=== PATIENT | male | born 1955 | race Caucasian/White ===

== ENCOUNTER 2017-02-20 20:37 | Inpatient (IN) ==
[2017-02-20] MEDS ORDERED: ADENOSINE 6 MG/2 ML VIAL ONE (20:52)
[2017-02-20] MEDS ORDERED: ONDANSETRON 4 MG/2 ML VIAL ONE (20:55)
[2017-02-20] MEDS ORDERED: AMIODARONE 150 MG/3 ML VIAL ONE ×2 (20:56→20:57)
[2017-02-20] MEDS ORDERED: AMIODARONE INJ 150 MG in DEXTROSE 5% 100 ML IV STA (21:09)
[2017-02-20] MEDS ORDERED: ASPIRIN 325 MG TABLET PO STA (21:09)
[2017-02-20] MEDS ORDERED: AMIODARONE INJ 150 MG in DEXTROSE 5% 100 ML IV ONE (21:11)
--- NOTE | 2017-02-20 21:16 | Emergency Department Note ---
Arrival - Arrival Chief Complaint: Arrhythmia/Palpitations Stated Complaint: chest pain ED Nursing Triage Note: Patient to triage with c/o CP that started around 1899. Patient noted to be diaphorectic, clammy, and c/o dizzy. EKG done in triage at 2048 before opening patient's chart and patient was noted to be in SVT at a rate of 184. PAtient was urgently taken back to ED 20, physician made aware, and then triage process was completed. Mode of Arrival: Wheelchair Limitations: No Limitations Source: Patient Time Seen by Provider: 02/20/17 21:09 - History of Present Illness HPI Narrative: This 61-year-old white male presents with a history of 2 hours prior to presentation, onset of dizziness, shortness of breath, and diaphoresis without accompanying chest pain. 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 Subsequently, the patient presented to the ER where he was found to have atrial fibrillation at a rate of 184 and was brought to the back. The patient has a long-standing history of atrial fibrillation and had recently had his medications changed, his flecainide being discontinued because of pulmonary toxicity. He is followed by Dr. Crystal locally and at [facility] for his arrhythmia as well as a bicuspid aortic valve and reports he has never experienced an arrhythmia problem such as this. Currently he is nauseated and diaphoretic but has only complaints of chest heaviness. During the initial evaluation the patient was treated with 300 mg of amiodarone IV with subsequent reduction of his atrial fibrillation to the mid 80s and immediate improvement symptomatically. Onset (ago): hour(s) (Patient presents proxy 2 hours post onset of symptoms) Allergies/Adverse Reactions: Allergies Allergy/AdvReac Type Severity Reaction Status Date / Time Sulfa (Sulfonamide Allergy HIVES Verified 02/20/17 21:33 Antibiotics) Review of System - Review of System 12 point system: reviewed and no additional remarkable complaints except as stated - Review of System Constitutional: Present: as per HPI Respiratory: Present: as per HPI Cardiovascular: Present: as per HPI Gastrointestinal: Present: as per HPI Medical,Surgical,& Family Hx - Medical History Cardio: History of: Cardiac Dysrhythmia, Valvular Heart Disease - Social History Smoking Status: Unknown if ever smoked Frequency of Alcohol Use: Unknown Type of Drug Use: Unknown Exam Physical Examination: GENERAL: Well developed, well nourished white male in moderate distress with myers pallor. HEENT: Normocephalic. No trauma. Moist mucous membranes. EOMI. PERRLA. ENT NML NECK: Supple. No adenopathy. CARDIAC: Regular. No murmurs. Heart rate 184 CHEST: Clear to auscultation. No respiratory distress. ABDOMEN: Soft. Nontender. Active bowel sounds. EXTREMITIES: No trauma. Normal ROM. No pedal edema. SKIN: No diaphoresis. No rash. Myers pallor NEURO: Alert. Oriented 3. Motor, sensory, vibratory intact. No focal deficits. Vital Signs: Vital Signs Temperature 96.5 F L 02/20/17 20:54 Pulse Rate 184 H 02/20/17 20:54 Respiratory Rate 26 H 02/20/17 20:54 Blood Pressure 74/57 02/20/17 20:54 O2 Sat by Pulse Oximetry 97 02/20/17 20:54 Course - Reevaluation(s) Reevaluation #1: Discussed with patient the obvious need for hospitalization. - Consultations Consultation #1: Discussed with Dr. Baker who will admit the patient for further evaluation treatment. Results - Labs CBC & BMP: 02/20/17 20:57 02/20/17 20:57 Labs: I have reviewed the laboratory and noted the renal azotemia and elevated CK total but negative enzymes. Notable was an elevated glucose and the patient has no history of diabetes. - Impressions EKG #1: Wide QRS SVT at 184 and a right bundle branch block pattern with diffuse expected ST changes. EKG #2 post amiodarone: Atrial fibrillation at 78 with intraventricular conduction delay and right axis deviation. Diffuse nonspecific ST changes. No acute injury pattern noted. - Diagnostic Findings Procedure: Chest x-ray: image reviewed by me, report reviewed by me (Borderline cardiomegaly with clear lung melendrez) Disposition Clinical Impression: Atrial fibrillation, Renal azotemia, Rhabdomyolysis Case discussed with: patient Disposition: Still a Patient Condition: Guarded Time of Disposition: 22:00
[2017-02-20] MEDS ORDERED: AMIODARONE 450 MG/9 ML VIAL IV ONE (21:18)
[2017-02-20 21:19] LABS: Basophils # 0.1 10*3/uL (0.0-0.2); Eosinophils % 0.4 % (0.00-10.9); Hematocrit 48.4 VOL% (42.0-52.0); Hemoglobin 16.4 GM/DL (14.0-18.0); Immature Granulocytes % 0.4 %; Immature Granulocytes Absolute 0.05 #; Lymphocytes % 26.7 % (21.2-54.2); Mean Corpuscular HGB Conc 33.9 GM/DL (32-36); Mean Corpuscular Hemoglobin 31 PG (27-34); Mean Corpuscular Volume 90.1 FL (87-102); Mean Platelet Volume 11.6 FL (9.6-12.0); Monocytes # 0.8 10*3/uL (0.11-0.8); Monocytes % 7.4 % (1.7-12.7); Neutrophils # 7.3 10*3/uL (1.4-7.4); Neutrophils % 64.1 % (38.7-73.9); Platelet Count 172 T/CUMM (130-400); Red Blood Count 5.37 MC/CUMM (3.8-5.5); Red Cell Distribution Width 12.5 % (9.3-17.3); White Blood Count 11.4 T/CUMM (4-12)
[2017-02-20] MEDS: AMIODARONE INJ 450 MG in DEXTROSE 5% 241 ML IV SCH (21:27)
[2017-02-20 21:32] LABS: CKMB % 1.8 %; Free T4 (Free Thyroxine) 0.97 NG/DL (0.76-1.46); Troponin I Only < 0.015 NG/ML (0.00-0.045)
[2017-02-20] MEDS ORDERED: ASPIRIN 325 MG TABLET ONE (21:32)
[2017-02-20 21:36] LABS: INR 1.2; PT Patient Result 12.7 SECS; Partial Thromboplastin Time 26.6 SECS (0-40)
[2017-02-20 21:37] LABS: Albumin 4.1 G/DL (3.4-5.0); Bilirubin,Total 0.9 MG/DL (0.2-1.0); Calcium 8.9 MG/DL (8.5-10.1); Osmolality,Calculated 292.3 MOS/KG (273-304); Potassium 5.2 MMOL/L (3.5-5.1); Thyroid Stimulating Hormone 3.76 uIU/ml (0.358-3.74); Total Protein 6.9 G/DL (6.4-8.3)
[2017-02-20] MEDS ORDERED: SODIUM CHLORIDE 0.9% 1,000 ML IV STA (21:47)
[2017-02-20] MEDS ORDERED: ONDANSETRON 4 MG/2 ML VIAL IV PRN (22:02)
[2017-02-20] MEDS ORDERED: AMIODARONE INJ 450 MG in DEXTROSE 5% 241 ML IV SCH (22:30)
[2017-02-20] MEDS: SODIUM CHLORIDE 0.9% 1,000 ML IV SCH (23:22)
--- NOTE | 2017-02-21 08:04 | XRay Report ---
Exam: XR chest 1V portable Date: 02/20/2017 9:10 PM Indication: Shortness of breath Comparison: None Technical: AP Findings: Cardiomegaly is present. External cardiac leads and a cardiac pad are present. Tiny low volume left effusion and minimal left basilar atelectasis. No pneumothorax. Oxygen tubing is present. Bony structures are otherwise intact. Impression: 1. Cardiomegaly with minimal left basilar atelectatic change and/or possibly small tiny left effusion PROCEDURE INTERPRETED AT [facility] DEPARTMENT OF RADIOLOGY Final Report Signed by: Dr. Freddie Lehman
[2017-02-21 08:20] LABS: Basophils # 0.1 10*3/uL (0.0-0.2); Basophils % 0.8 % (0.0-0.8); Eosinophils # 0.1 10*3/uL (0.0-0.87); Hematocrit 39.3 VOL% (42.0-52.0); Hemoglobin 13.4 GM/DL (14.0-18.0); Immature Granulocytes % 0.5 %; Immature Granulocytes Absolute 0.04 #; Lymphocytes # 2.1 10*3/uL (1.4-4.0); Lymphocytes % 24.3 % (21.2-54.2); Mean Corpuscular HGB Conc 34.1 GM/DL (32-36); Mean Corpuscular Hemoglobin 31 PG (27-34); Mean Corpuscular Volume 91.2 FL (87-102); Mean Platelet Volume 11.5 FL (9.6-12.0); Monocytes # 0.8 10*3/uL (0.11-0.8); Monocytes % 9.4 % (1.7-12.7); NRBC # 0.02 10*3/uL; Neutrophils # 5.6 10*3/uL (1.4-7.4); Platelet Count 126 T/CUMM (130-400); Red Blood Count 4.31 MC/CUMM (3.8-5.5); Red Cell Distribution Width 12.6 % (9.3-17.3); White Blood Count 8.7 T/CUMM (4-12)
--- NOTE | 2017-02-21 08:58 | Cardiology History & Physical ---
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 EP: Dr. Robles Mr. Holguin is a 61 year old male who is to Ciaran Holguin. 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 He is also seen at [facility]. In fact he is seen in the yearly for screening, where he gets his routine echoes, and has not seen Dr. Crystal since 2013. His atrial fibrillation was treated for a number of years with with flecainide. Recently, he had some asymptomatic atrial fibrillation during an office visit , and their interpretation of their instructions with he could "stop the flecainide" since it was not working and he was asymptomatic. He felt poorly off of the flecainide, and restarted it. At his follow-up visit, this was discontinued because he developed "more heart block", it sounds as if he was bradycardic. Multaq was started. He continued to feel poorly and sluggish, and he has decrease his atenolol from 50 mg to 12.5 mg recently. On the day of admission, he had been working outside in the heat for several hours. He suddenly felt very dizzy, presyncopal. His son checked his pulse, and counted 180-200 bpm. He presented to the emergency room and was found to be in a wide- complex tachycardia at 184 bpm with a right bundle branch block pattern. He was given amiodarone 300 mg IV bolus and converted into an atrial fibrillation with controlled ventricular response at 78 bpm, and eventually converted to sinus bradycardia in the 50s. He did not have nor has he experienced any chest discomfort, shortness of breath , dyspnea on exertion, lower extremity edema, orthopnea, change in exercise tolerance. His creatinine was elevated upon admission, and with hydration has normalized. He has a history of neurogenic bladder but has not been expressing any dysuria. He has not had any acute illness, not received any steroids, does not consume energy drinks, and usually drinks 2-3 cups of coffee a day. In general they have a preference for any cardiac workup to be done at [facility]. Impression and plan: 1. Arrhythmia-he has some complex arrhythmia with an initial presenting wide- complex tachycardia and then A. fib in the setting of recent medication changes. 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 2. History of bicuspid aortic valve-he does not appear to have aortic stenosis on exam. Home Medications Medication Instructions Recorded Confirmed Type Aspirin EC Tab 325 mg PO QPM 02/20/17 02/20/17 History Atenolol [Atenolol] 50 mg PO QPM 02/20/17 02/20/17 History Baclofen Tab [Lioresal] 0 mg PO BID 02/20/17 02/20/17 History Dronedarone [Multaq] 400 mg PO DAILY W/BREAKFAST 02/20/17 02/20/17 History Rosuvastatin [Crestor] 0 mg PO BEDTIME 02/20/17 02/20/17 History Tamsulosin [Flomax] 0.4 mg PO QAM 02/20/17 02/20/17 History Tamsulosin [Flomax] 0.4 mg PO QOTHER DAY 02/20/17 02/20/17 History Allergies Allergy/AdvReac Type Severity Reaction Status Date / Time Sulfa (Sulfonamide Allergy HIVES Verified 02/20/17 21:33 Antibiotics) 12 point system: reviewed and no additional remarkable complaints except as stated Medical,Surgical,& Family Hx - Medical History Cardio: History of: Cardiac Dysrhythmia (A. fib), Valvular Heart Disease ( Bicuspid aortic valve) Neurology: History of: Migraine Genitourinary: History of: Bladder Problem (neurogenic bladder), Prostate Problems (chronic prostatitis) Gastrointestinal: History of: GI Problems (hernia) Musculoskeletal: History of: Musculoskeletal Problems (L leg muscle atrophy) - Surgical History Cardiac Surgeries: Sugical HX of: Cardiac Catheterization Thoracic Surgeries: Patient denies;: Lobectomy Neurologic Surgeries: Patient denies: Neurologic Surgery Reproductive Surgeries: Patient denies;: Genitourinary Surgery - Social History Smoking Status: Never smoker Frequency of Alcohol Use: None Type of Drug Use: None Marital Status: Lives With:: Spouse Functional capacity: independent ambulation Cardiology Physical Exam - Constitutional Vitals: Vital Signs Temp Pulse Resp BP Pulse Ox 98.3 F 52 L 18 107/52 96 02/21/17 07:13 02/21/17 07:13 02/21/17 07:13 02/21/17 07:13 02/21/17 07:13 Intake and Output 02/20/17 02/21/17 02/21/17 23:59 07:59 15:59 Intake Total 0 / 0 120 / 120 Balance 0 / 0 120 / 120 Intake: IV 0 / 0 Cordarone Inj 450 mg In 0 / 0 D5 241 ml @ 0.5 MG/MIN 16 .66 mls/hr IV .Q15H1M [facility] Rx#:[id number] Oral 120 / 120 Other: # Voids 1 # Bowel Movements 0 Weight 84.425 kg Exam: General appearance: normal weight, no acute distress - Head Head exam: Present: normal inspection, normocephalic, atraumatic. Absent: hematoma, laceration - Eye Eye exam: Present: EOMI. Absent: conjunctival injection, nystagmus, periorbital swelling, scleral icterus, laceration to eyelids Pupils: Present: PERRL. Absent: constricted, dilated, fixed, irregular, unequal - ENT ENT exam: Present: normal exam, normal external ear exam - Neck Neck exam: Present: normal inspection. Absent: lymphadenopathy, meningismus, tenderness, thyromegaly - Respiratory Respiratory exam: Present: clear to auscultation bilaterally. Absent: accessory muscle use, chest wall tenderness - Cardiovascular Cardiovascular exam: Present: regular rate and rhythm with a late peaking subtle 2/6 systolic murmur. Absent: carotid bruit, gallop, JVD, rubs - GI/Abdominal GI/Abdominal exam: Present: normal bowel sounds, soft. Absent: distended, firm , guarding, hernia, mass, tenderness, rebound. - Extremities Exam Extremities exam: Present: normal inspection, normal capillary refill. Absent: calf tenderness, edema - Back Exam Back exam: Present: normal inspection. Absent: muscle spasm, vertebral tenderness - Neurological Exam Neurological exam: Present: alert, oriented X3, grossly intact without resting or intention tremor - Psychiatric Psychiatric exam: Present: normal affect, normal mood - Skin Skin exam: Present: normal color, warm, dry, intact. Absent: cyanosis, diaphoretic, rash, urticaria Result/EKG - Labs CBC & BMP: 02/21/17 08:10 02/21/17 08:10 Lab Results: I have reviewed the past 24 hour labs Labs: Laboratory Results - last 24 hr 02/20/17 02/20/17 02/20/17 20:57 20:57 20:57 WBC 11.4 RBC 5.37 Hgb 16.4 Hct 48.4 MCV 90.1 MCH 31 MCHC 33.9 RDW 12.5 Plt Count 172 MPV 11.6 Neut % (Auto) 64.1 Lymph % (Auto) 26.7 [place] % (Auto) 7.4 Eos % (Auto) 0.4 Baso % (Auto) 1.0 H Neut # (Auto) 7.3 Lymph # (Auto) 3.0 [place] # (Auto) 0.8 Eos # (Auto) 0.0 Baso # (Auto) 0.1 Immature Gran % 0.4 Nucleated RBC % 0.0 Immature Gran # 0.05 Nucleated RBCs # 0.00 Immature Plt Fraction 0.0 INR 1.2 PT Patient/Control Mix 12.7 Circ Anticoag PTT 26.6 Sodium Potassium Chloride Carbon Dioxide Anion Gap BUN Creatinine GFR Calculation BUN/Creatinine Ratio Glucose Calculated Osmolality Calcium Total Bilirubin AST ALT Alkaline Phosphatase Total Creatine Kinase 689 H CK-MB (CK-2) 12.1 H CK and CKMB Interp 1.8 Troponin I < 0.015 B-Natriuretic Peptide Total Protein Albumin Globulin Albumin/Globulin Ratio Free T4 0.97 TSH 3rd Generation 02/20/17 02/20/17 02/21/17 20:57 20:57 08:10 WBC 8.7 RBC 4.31 Hgb 13.4 L D Hct 39.3 L MCV 91.2 MCH 31 MCHC 34.1 RDW 12.6 Plt Count 126 L D MPV 11.5 Neut % (Auto) 64.0 Lymph % (Auto) 24.3 [place] % (Auto) 9.4 Eos % (Auto) 1.0 Baso % (Auto) 0.8 Neut # (Auto) 5.6 Lymph # (Auto) 2.1 [place] # (Auto) 0.8 Eos # (Auto) 0.1 Baso # (Auto) 0.1 Immature Gran % 0.5 Nucleated RBC % 0.2 Immature Gran # 0.04 Nucleated RBCs # 0.02 Immature Plt Fraction 0.0 INR PT Patient/Control Mix Circ Anticoag PTT Sodium 141 Potassium 5.2 H Chloride 106 Carbon Dioxide 26 Anion Gap 14.2 BUN 27 H Creatinine 2.20 H GFR Calculation 35 BUN/Creatinine Ratio 12.00 Glucose 223 H Calculated Osmolality 292.3 Calcium 8.9 Total Bilirubin 0.90 AST 119 H ALT 128 H Alkaline Phosphatase 81 Total Creatine Kinase CK-MB (CK-2) CK and CKMB Interp Troponin I B-Natriuretic Peptide 370 H Total Protein 6.9 Albumin 4.1 Globulin 2.8 Albumin/Globulin Ratio 1.4 Free T4 TSH 3rd Generation 3.760 H - Diagnostic Findings Procedure: Chest x-ray: report reviewed by me - EKG EKG results: interpreted by me EKG shows: atrial fibrillation
[2017-02-21] MEDS ORDERED: DRONEDARONE 400 MG TABLET PO SCH (09:00)
[2017-02-21] MEDS ORDERED: ATENOLOL 50 MG TABLET PO SCH (09:00)
[2017-02-21] MEDS: TAMSULOSIN 0.4 MG CAPSULE PO SCH (09:02)
[2017-02-21] MEDS: ASPIRIN 325 MG TABLET PO SCH (09:02)
[2017-02-21] MEDS: BACLOFEN 10 MG TABLET PO SCH ×2 (09:02→21:31)
[2017-02-21] MEDS: PANTOPRAZOLE 40 MG TABLET PO SCH (09:02)
[2017-02-21] MEDS: SODIUM CHLORIDE 0.9% 1,000 ML IV SCH ×3 (09:03→23:43)
[2017-02-21 09:05] LABS: Albumin 3.4 G/DL (3.4-5.0); Bilirubin,Total 0.9 MG/DL (0.2-1.0); CKMB % 2.5 %; Calcium 7.9 MG/DL (8.5-10.1); Osmolality,Calculated 286.1 MOS/KG (273-304); Potassium 4.4 MMOL/L (3.5-5.1); Total Protein 5.7 G/DL (6.4-8.3)
[2017-02-21 09:06] LABS: Troponin I Only 0.557 NG/ML (0.00-0.045)
--- NOTE | 2017-02-21 09:59 | EKG Report ---
Please refer to the EKG image. Final interpretation is pending.
--- NOTE | 2017-02-21 09:59 | EKG Report ---
Please refer to the EKG image. Final interpretation is pending.
--- NOTE | 2017-02-21 12:19 | EKG Report ---
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
[2017-02-21] MEDS ORDERED: ENOXAPARIN 80 MG/0.8 ML SYRINGE SUBCUT ONE (13:11)
[2017-02-21 14:02] LABS: CKMB % 2.6 %; Troponin I Only 0.445 NG/ML (0.00-0.045)
[2017-02-21 14:07] LABS: Risk Ratio 2.56; VLDL CHOLESTEROL 25.8 MG/DL
[2017-02-21] MEDS ORDERED: ROSUVASTATIN 20 MG TABLET PO SCH (21:00)
[2017-02-21] MEDS: AMIODARONE INJ 450 MG in DEXTROSE 5% 241 ML IV SCH (23:43)
[2017-02-22 05:22] LABS: Basophils # 0.1 10*3/uL (0.0-0.2); Basophils % 0.8 % (0.0-0.8); Eosinophils # 0.1 10*3/uL (0.0-0.87); Eosinophils % 1.1 % (0.00-10.9); Hematocrit 40.3 VOL% (42.0-52.0); Hemoglobin 13.5 GM/DL (14.0-18.0); Immature Granulocytes % 0.4 %; Immature Granulocytes Absolute 0.04 #; Lymphocytes # 2.1 10*3/uL (1.4-4.0); Lymphocytes % 21.8 % (21.2-54.2); Mean Corpuscular HGB Conc 33.5 GM/DL (32-36); Mean Corpuscular Hemoglobin 31 PG (27-34); Mean Corpuscular Volume 93.3 FL (87-102); Mean Platelet Volume 11.9 FL (9.6-12.0); Monocytes # 0.8 10*3/uL (0.11-0.8); Neutrophils # 6.6 10*3/uL (1.4-7.4); Neutrophils % 67.9 % (38.7-73.9); Platelet Count 114 T/CUMM (130-400); Red Blood Count 4.32 MC/CUMM (3.8-5.5); Red Cell Distribution Width 12.5 % (9.3-17.3); White Blood Count 9.8 T/CUMM (4-12)
[2017-02-22 05:55] LABS: Calcium 8.1 MG/DL (8.5-10.1); Magnesium 2.1 MG/DL (1.8-2.4); Potassium 4.9 MMOL/L (3.5-5.1)
[2017-02-22] MEDS: SODIUM CHLORIDE 0.9% 1,000 ML IV SCH (06:55)
[2017-02-22] MEDS: TAMSULOSIN 0.4 MG CAPSULE PO SCH (08:18)
[2017-02-22] MEDS: PANTOPRAZOLE 40 MG TABLET PO SCH (08:18)
[2017-02-22] MEDS: BACLOFEN 10 MG TABLET PO SCH (08:18)
[2017-02-22] MEDS: ASPIRIN 325 MG TABLET PO SCH (08:18)
[2017-02-22 08:28] VITALS: BP 138/73
--- NOTE | 2017-02-22 10:11 | Discharge Summary ---
Hospital Course - Hospital Course Hospital Course: TYPE CUTTER: DR. CRYSTAL. EP: DR. BONNER FEBRUARY 21, 2017: Mr. Holguin is a 61 year old male who is to DrCiaran . 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 He is also seen at [facility]. In fact he is seen in the yearly for screening, where he gets his routine echoes, and has not seen Dr. Crystal since 2013. His atrial fibrillation was treated for a number of years with with Flecainide. Recently, he had heart block during a clinic visit with Dr. Bonner and he was told to stop the Flecainide. Patient did stop the Flecainide however he felt poorly off of it therefore he restarted it himself. When he was seen in his last clinic visit, he was taking Flecainide and apparently was still in a heart block. The Flecainide was stopped and he was started on Multaq. This was approximately 3 weeks ago. He continued to feel poorly and sluggish, and he has decrease his atenolol from 50 mg to 12.5 mg recently. On the day of admission, he had been working outside in the heat for several hours. He suddenly felt very dizzy, presyncopal. His son checked his pulse, and counted 180-200 bpm. He presented to the emergency room and was found to be in a wide-complex tachycardia at 184 bpm with a right bundle branch block pattern. He was given Amiodarone 300 mg IV bolus and converted into an atrial fibrillation with controlled ventricular response at 78 bpm, and eventually converted to sinus bradycardia in the 50s. FEBRUARY 22, 2017: During the night, he had a brief episode of a narrow complex tachycardia briefly. He is feeling well, continuing to be hydrated with IV fluids. Troponin initially was 0.5 and repeat noted to be 0.4. It is felt that his troponin elevation was related to his tachycardic state. He is ready for transfer. Dr. Lucas Troy has agreed to accept the patient at [facility]. At this time, he is being transferred in stable condition - Time spent with patient Time with patient DS: Greater than 30 minutes Diagnosis - Discharge Diagnosis (1) Wide-complex tachycardia Status: Acute (2) Atrial fibrillation Status: Chronic (3) Bicuspid aortic valve Status: Chronic Discharge Plan - Discharge Data Disposition: Disch/Xfer-Ipshort Term Hos Condition at Discharge: Stable Discharge Diet: heart healthy Activity: other (Per cardiology instructions at [facility]) Hygiene: no restrictions Weight Bearing at Discharge: full weight bearing Driving: not until seen by doctor Contact your physician if you experience:: fever over 101, Difficulty voiding, Redness or swelling, Nausea/Vomiting, Shortness of breath, Bleeding, pain uncontrolled by pain medications - Discharge Medications Continue Rosuvastatin [Crestor] 0 mg PO BEDTIME Tamsulosin [Flomax] 0.4 mg PO QOTHER DAY Tamsulosin [Flomax] 0.4 mg PO QAM Dronedarone [Multaq] 400 mg PO DAILY W/BREAKFAST Baclofen Tab [Lioresal] 0 mg PO BID Atenolol 50 mg PO QPM Aspirin EC Tab 325 mg PO QPM - Follow Up or Referral - Forms/Instructions Exam - Constitutional Vitals: Period Temp Pulse Resp BP Sys/Bright Pulse Ox Last 24 Hr 97.0 F-98.9 F 54-74 16-20 120-138/60-75 92-98 Exam: General: [Appears well with no apparent distress.] [Pleasant and cooperative. ] [Appears comfortable.] HEENT: [PERRL, normocephalic, atraumatic. Mucous membranes moist. No jaundice noted. Conjunctiva moist and clear, sclerae anicteric] Neck: No JVD/HJR, no thyromegaly or lymphadenopathy noted. No carotid bruit appreciated Cardiac: [Regular rate and rhythm.] [No murmur rub or gallop.] Lungs: [Clear to auscultation without accessory muscle use to assist the respiratory pattern.] Oxygen in use via nasal cannula Abdomen: Soft, bowel sounds normoactive. Nontender and nondistended. No abdominal bruit or thrill noted. No masses noted. Musculoskeletal: No fluid collection. Decreased range of motion is noted. Extremities: No clubbing, cyanosis noted. [ No edema noted.] Upper extremity pulses 2+. Lower extremity pulses 2+. Capillary refill less than 3 seconds. Skin: No unusual lesions or rashes. No skin breakdown appreciated. Neuro: Awake, alert and oriented 3. Moves all extremities well without hemiparesis or paralysis. No essential tremor is appreciated. Discharge Results Procedures and tests throughout hospitalization: Pending Orders 02/20/17 21:48 UA [Urinalysis] Stat 02/23/17 04:00 Basic Metabolic Panel w/Mg IN AM Comp Blood Count Auto Diff IN AM 02/24/17 04:00 Basic Metabolic Panel w/Mg IN AM Comp Blood Count Auto Diff IN AM Labs on day of discharge: Labs from last 24 hours 02/22/17 02/22/17 02/21/17 03:52 03:52 13:27 WBC 9.8 RBC 4.32 Hgb 13.5 L Hct 40.3 L MCV 93.3 MCH 31 MCHC 33.5 RDW 12.5 Plt Count 114 L MPV 11.9 Neut % (Auto) 67.9 Lymph % (Auto) 21.8 [place] % (Auto) 8.0 Eos % (Auto) 1.1 Baso % (Auto) 0.8 Neut # (Auto) 6.6 Lymph # (Auto) 2.1 [place] # (Auto) 0.8 Eos # (Auto) 0.1 Baso # (Auto) 0.1 Immature Gran % 0.4 Nucleated RBC % 0.0 Immature Gran # 0.04 Nucleated RBCs # 0.00 Immature Plt Fraction 0.0 Sodium 143 Potassium 4.9 Chloride 110 H Carbon Dioxide 27 Anion Gap 10.9 BUN 24 H Creatinine 1.10 GFR Calculation 86 BUN/Creatinine Ratio 21.00 H Glucose 84 Calculated Osmolality 287.0 Calcium 8.1 L Magnesium 2.1 Total Creatine Kinase CK-MB (CK-2) CK and CKMB Interp Troponin I Triglycerides 129 Cholesterol 100 LDL Cholesterol 46.0 VLDL Cholesterol 25.8 HDL Cholesterol 39 L Heart Disease Risk Ratio 2.56 02/21/17 02/21/17 13:27 13:27 WBC RBC Hgb Hct MCV MCH MCHC RDW Plt Count MPV Neut % (Auto) Lymph % (Auto) [place] % (Auto) Eos % (Auto) Baso % (Auto) Neut # (Auto) Lymph # (Auto) [place] # (Auto) Eos # (Auto) Baso # (Auto) Immature Gran % Nucleated RBC % Immature Gran # Nucleated RBCs # Immature Plt Fraction Sodium Potassium Chloride Carbon Dioxide Anion Gap BUN Creatinine GFR Calculation BUN/Creatinine Ratio Glucose Calculated Osmolality Calcium Magnesium 2.3 Total Creatine Kinase 497 H CK-MB (CK-2) 13.1 H CK and CKMB Interp 2.6 Troponin I 0.445 H D Triglycerides Cholesterol LDL Cholesterol VLDL Cholesterol HDL Cholesterol Heart Disease Risk Ratio - Imaging and Cardiology Cardiology Procedure: report reviewed by me Procedure: Chest x-ray: report reviewed by me DS: Provider Date of admission: 02/20/17 22:00 Primary care physician: Mian Crystal MD Attending physician on admission: Mendy Shelton, Consults: 02/21/17 13:12 Consult to Case Mgmt/Social Srvs [CONS] Routine Reason for Case Mgmt/Social Srvs: Other Consult Comment: Assist with Transfer in am to Dr. Lucas Troy at [facility] Discharging clinician: Kendra Gamboa NP Expected date of discharge: 02/22/17
== END 2017-02-22 10:32 | disposition hospice, home (50) | DRG 309 ==
LOC: N.ED 20:37 → N.EDINP 22:00 → N.TELES 22:48
PROVIDERS: ADMIT Internal Medicine Cardiovascular Disease; ATTEND Internal Medicine Cardiovascular Disease